=== PATIENT | male | born 1990 | race African-American/Black ===

== ENCOUNTER 2020-04-01 05:20 | Emergency (ER) | payer MEDICAID, OTHER ==
[~2020-04-01] VITALS: Ht 165.1 cm; Wt 64.0 kg
[2020-04-01 05:23] VITALS: BP 132/98
== END 2020-04-01 07:06 | disposition home or self-care (01) ==
LOC: ER 05:20
DX: Z48.02 Encounter for removal of sutures (principal)
CPT/HCPCS: 99281